=== PATIENT | female | born 1985 | race Caucasian/White ===

== ENCOUNTER 2022-10-29 09:56 | Outpatient (RCR) | payer BC, SELFPAY ==
[2022-10-30 10:10] VITALS: BP 136/86; PULSE 80; RESP 20; TEMP 36.4; O2SAT 96
--- NOTE | 2022-10-30 10:41 | PC.NURSE ---
PATIENT ARRIVES TO [facility] AMB[facility]ORY ALONG WITH SIGNIFICANT OTHER. PATIENT IS MADE COMFORTABLE IN THE RECLINER, PROCEDURE EXPLAINED, PATIENT VERBALIZED UNDERSTANDING. CONSENT SIGNED. VITAL SIGNS OBTAINED. PATIENT IS A NEGATIVE AND IS RECEIVING AN IM INJECTION OF RHOPHYLAC 1500IU, ONE DOSE. THE R DORSOGLUTEAL SITE WAS CLEANSED WITH AN ALCOHOL WIPE AND ALLOWED TO DRY. THE IM INJECTION WAS GIVEN WITHOUT DIFFICULTY. THE SITE WAS COVERED WITH A COTTON BALL AND BAND AID. THE PATIENT AND SIGNIFICANT OTHER ARE WAITING 20 MINUTES TO ASSESS FOR SIGNS AND SYMPTOMS OF A REACTION. POST 20 MINUTES THE PATIENT DENIES SIGNS AND SYMPTOMS AND IS DISCHARGED AMBULATORY WITHOUT COMPLAINTS TO THE CARE OF SIGNIFICANT OTHER. PATIENT WAS PROVIDED ADMINISTRATION RECORD WITH EMERGENCY CONTACT INFORMATION. PATIENT WAS ALSO PROVIDED AN EDUCATIONAL [employer] BOARD WITH THE TOPIC OF RHOGAM TO REVIEW.
== END 2022-12-02 16:04 | disposition home or self-care (01) ==
LOC: LAB 09:56
PROVIDERS: PCP Family Medicine; Visit Provider Midwife
DX: Z67.91 Unspecified blood type, Rh negative (principal)
CPT/HCPCS: 36415; 86900; 86901

== ENCOUNTER 2022-10-30 08:58 | Outpatient (OUT) | payer BC, SELFPAY ==
[2022-10-30 13:09] VITALS: TEMP 36.6
[2022-10-30 13:11] VITALS: BP 154/69; PULSE 96
== END 2022-10-30 10:00 | disposition home or self-care (01) ==
LOC: LAB 09:46 → FBC 09:52
PROVIDERS: PCP Family Medicine; Visit Provider Obstetrics & Gynecology
DX: O10.919 Unspecified pre-existing hypertension complicating pregnancy, unspecified trimester (principal)
CPT/HCPCS: 59025

== ENCOUNTER 2022-11-03 09:29 | Outpatient (OUT) | payer BC, SELFPAY ==
[2022-11-03 09:46] VITALS: BP 135/74; PULSE 85; RESP 16
== END 2022-11-03 10:02 | disposition home or self-care (01) ==
LOC: FBCO 09:31 → FBC 09:33
PROVIDERS: PCP Family Medicine; Visit Provider Obstetrics & Gynecology
DX: O16.9 Unspecified maternal hypertension, unspecified trimester (principal)
CPT/HCPCS: 59025

== ENCOUNTER 2022-11-10 09:40 | Outpatient (OUT) | payer BC, SELFPAY ==
[2022-11-10 09:43] VITALS: BP 123/78; PULSE 104
[2022-12-02 11:39] VITALS: BP 145/89; PULSE 74; RESP 18; TEMP 36.7
== END 2022-11-10 10:10 | disposition home or self-care (01) ==
LOC: FBCO 09:42 → FBC 09:43
PROVIDERS: PCP Family Medicine; Visit Provider Obstetrics & Gynecology
DX: Z39.2 Encounter for routine postpartum follow-up (principal)
CPT/HCPCS: 59025

== ENCOUNTER 2022-11-22 19:51 | Observation (INO) | payer BC, SELFPAY ==
[2022-11-22] VITALS (12 sets, daily range): BP systolic 121–140; BP diastolic 62–80; PULSE 78–88; RESP 16–18; TEMP 36.8–36.9
[2022-11-22 20:57] LABS: Hematocrit 35.1 % (36.0-48.0); Hemoglobin 11.7 g/dL (12.0-16.0); Mean Corpuscular HGB Conc 33.3 g/dL (29.9-35.2); Mean Corpuscular Hemoglobin 27.7 pg (26.7-34.0); Mean Corpuscular Volume 83.2 fL (81.0-99.0); Mean Platelet Volume 12.3 fL (9.5-13.5); Platelet Count 274 10^3/uL (150-450); Red Blood Count 4.22 10^6/uL (4.20-5.40); Red Cell Distribution Width 12.7 % (11.0-15.0); White Blood Count 14.4 10^3/uL (4.0-11.0)
[2022-11-22 21:09] LABS: Amphetamine Screen Urine NEGATIVE (NEGATIVE); Barbiturates Screen Urine NEGATIVE (NEGATIVE); Benzodiazepines Screen Urine NEGATIVE (NEGATIVE); Buprenorphine Screen Urine NEGATIVE (NEGATIVE); Cannabinoid Screen Urine NEGATIVE (NEGATIVE); Cocaine Screen Urine NEGATIVE (NEGATIVE); Methadone Screen Urine NEGATIVE (NEGATIVE); Methamphetamines Screen Urine NEGATIVE (NEGATIVE); Opiate Screen Urine NEGATIVE (NEGATIVE); Oxycodone Screen Urine NEGATIVE (NEGATIVE); Phencyclidine Screen Urine NEGATIVE (NEGATIVE); Tricyclic Antidepressant Urine NEGATIVE (NEGATIVE)
[2022-11-22] MEDS: DINOPROSTONE 10 MG VAG INSERT.ER VAGINAL (21:47)
[2022-11-23] VITALS (23 sets, daily range): BP systolic 111–148; BP diastolic 58–82; PULSE 70–100; RESP 14–16; TEMP 36.3–37
[2022-11-23] MEDS: LABETALOL HCL 200 MG TABLET PO ×2 (05:59→13:44)
--- NOTE | 2022-11-23 07:50 | PC.NURSE ---
report recieved, pt taking breakfast
[2022-11-23] MEDS: AMPICILLIN SODIUM 2,000 MG in 0.9 % SODIUM CHLORIDE 100 ML 100 MG IV (08:45)
[2022-11-23] MEDS: 0.9 % SODIUM CHLORIDE 1,000 ML 125 ML IV (08:46)
[2022-11-23] MEDS: OXYTOCIN 10 UNIT in 0.9 % SODIUM CHLORIDE 500 ML 6.012 UNIT IV (08:50)
--- NOTE | 2022-11-23 10:55 | P.OBHP_ITS ---
OB - H&P: HPI History of Present Illness Chief complaint: INDUCTION : 3 Para: 1 Comments: three, para one at thirty-seven weeks two days gestation, presented for induction of labor secondary to gestational hypertension. History of Present complications: induced hypertension Review of Systems ROS Status of ROS 10 or more systems reviewed and unremarkable except as noted in history and below PFSH PFSH Social History Do you think of yourself as: straight/heterosexual Gender Identity: female Meds Home Medications and Allergies Home Medications Medication Instructions Recorded Confirmed Type labetalol 200 mg tablet 200 mg PO TID 11/03/22 11/03/22 History pantoprazole 40 mg tablet,delayed 40 mg PO DAILY 11/03/22 11/03/22 History release vit 168-iron 27 mg-folic 1 cap PO DAILY 11/03/22 11/03/22 History acid 800 mcg-omega3 235 mg capsule (One-A-Day -1) valacyclovir 500 mg tablet 500 mg PO DAILY 11/03/22 11/03/22 History Allergies Allergy/AdvReac Type Severity Reaction Status Date / Time No Known Drug Allergies Allergy Verified 11/03/22 09:42 Exam Narrative Exam Narrative: Gen. exam is normal. Respiratory system exam is normal. Heart regular rate and rhythm. Abdomen soft, nontender. Uterus is soft, contractions are regular. heart rate is reactive. No vaginal discharge, itching of fluid or bleeding. Neurological exam. Psychiatric exam was normal. Constitutional Vital Signs - 24 hr 11/22/22 20:35 11/22/22 20:31 11/22/22 21:45 Temperature 98.4 F Pulse Rate 88 83 Respiratory Rate 18 Blood Pressure 140/77 H 133/77 H 11/22/22 22:10 11/22/22 22:10 11/22/22 22:25 Temperature 98.4 F Pulse Rate 80 81 Respiratory Rate 16 Blood Pressure 133/70 H 127/68 H 11/22/22 22:39 11/22/22 22:55 11/22/22 23:10 Temperature Pulse Rate 84 85 78 Respiratory Rate Blood Pressure 129/71 H 137/80 H 126/64 H 11/22/22 23:24 11/22/22 23:39 11/22/22 23:55 Temperature Pulse Rate 78 80 79 Respiratory Rate Blood Pressure 124/65 H 122/62 H 121/64 H 11/23/22 00:11 11/23/22 01:18 11/23/22 02:18 Temperature Pulse Rate 83 72 70 Respiratory Rate Blood Pressure 136/74 H 118/59 L 111/58 L 11/23/22 01:33 11/23/22 03:18 11/23/22 04:18 Temperature 98.1 F Pulse Rate 75 72 Respiratory Rate 16 Blood Pressure 139/79 H 133/62 H 11/23/22 05:20 11/23/22 06:18 11/23/22 08:27 Temperature Pulse Rate 76 83 100 H Respiratory Rate Blood Pressure 122/58 H 130/74 H 131/80 H 11/23/22 09:13 11/23/22 08:59 11/23/22 09:52 Temperature 98.3 F Pulse Rate 90 78 Respiratory Rate 16 Blood Pressure 124/82 H 131/70 H 11/22/22 22:53 11/23/22 03:37 11/23/22 06:12 Temperature 98.3 F 98.1 F 98.6 F Pulse Rate Respiratory Rate 18 14 16 Blood Pressure Manual OB Exam: dilated 1 cm and effaced (posterior) 50% Results Labs Labs: Short CBC 11/22/22 Range/Units 20:45 WBC 14.4 H (4.0-11.0) 10^3/uL Hgb 11.7 L (12.0-16.0) g/dL Hct 35.1 L (36.0-48.0) % Plt Count 274 (150-450) 10^3/uL OB - A/P Assessment and Plan (1) Gestational hypertension: Plan IOL 37w3d, Gestational HTN. After Cervidil cervical ripening overnight and Pitocin during the day, does not change in cervix. Cervix is 1-2, fifty percent, posterior. head is at -2-3. Patient is asymptomatic, blood pressures within normal limits. Well-controlled on labetalol 200 mg three times a day. 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
[2022-11-23] MEDS: AMPICILLIN SODIUM 1,000 MG in 0.9 % SODIUM CHLORIDE 50 ML 50 MG IV (13:46)
== END 2022-11-23 18:45 | disposition home or self-care (01) ==
PROVIDERS: Midwife; Admitting Provider Obstetrics & Gynecology; PCP Family Medicine; Visit Provider Obstetrics & Gynecology
DX: O13.3 Gestational [pregnancy-induced] hypertension without significant proteinuria, third trimester (principal); O61.0 Failed medical induction of labor; Z3A.37 37 weeks gestation of pregnancy; Z79.899 Other long term (current) drug therapy
CPT/HCPCS: 36415; 80307; 85027; 86900; 86901; 96374; 96375; 96376; G0378; G0379

== ENCOUNTER 2022-11-26 20:42 | Inpatient (IN) | payer BC, SELFPAY ==
[2022-11-26 21:25] VITALS: BP 130/82; PULSE 82
[2022-11-26 21:25] LABS: Bilirubin Urine NEGATIVE (NEGATIVE); Blood Urine TRACE-I (NEGATIVE); Clarity Urine CLEAR (CLEAR); Color Urine YELLOW (YELLOW); Glucose Urine UA NEGATIVE (NEGATIVE); Ketones Urine TRACE mg/dL (NEGATIVE); Leukocyte Esterase Urine NEGATIVE (NEGATIVE); Nitrite Urine NEGATIVE (NEGATIVE); Protein Urine NEGATIVE (NEG/TRACE); Specific Gravity Urine >=1.030 (1.005-1.025); Urine Microscopic Indicated NO; Urobilinogen Urine 0.2 EU/dL (0.2-1.0); pH Urine 5.5 (5.0-9.0)
[2022-11-26 22:35] LABS: Hematocrit 35.3 % (36.0-48.0); Hemoglobin 11.3 g/dL (12.0-16.0); Mean Corpuscular Volume 84.4 fL (81.0-99.0); Mean Platelet Volume 12.5 fL (9.5-13.5); Platelet Count 259 10^3/uL (150-450); Red Blood Count 4.18 10^6/uL (4.20-5.40); Red Cell Distribution Width 12.8 % (11.0-15.0)
[2022-11-26 22:46] LABS: Amphetamine Screen Urine NEGATIVE (NEGATIVE); Barbiturates Screen Urine NEGATIVE (NEGATIVE); Benzodiazepines Screen Urine NEGATIVE (NEGATIVE); Buprenorphine Screen Urine NEGATIVE (NEGATIVE); Cannabinoid Screen Urine NEGATIVE (NEGATIVE); Cocaine Screen Urine NEGATIVE (NEGATIVE); Methadone Screen Urine NEGATIVE (NEGATIVE); Methamphetamines Screen Urine NEGATIVE (NEGATIVE); Opiate Screen Urine NEGATIVE (NEGATIVE); Oxycodone Screen Urine NEGATIVE (NEGATIVE); Phencyclidine Screen Urine NEGATIVE (NEGATIVE); Tricyclic Antidepressant Urine NEGATIVE (NEGATIVE)
[2022-11-26] MEDS: 0.9 % SODIUM CHLORIDE 1,000 ML 1000 ML IV (22:54)
[2022-11-26] MEDS: FLUCONAZOLE 150 MG TABLET (22:55)
[2022-11-26 22:59] VITALS: BP 144/82; PULSE 83
[2022-11-26 23:10] VITALS: BP 144/82; PULSE 83; RESP 18; TEMP 36.6
[2022-11-26] MEDS: OXYTOCIN 10 UNIT in 0.9 % SODIUM CHLORIDE 500 ML 6.012 UNIT IV (23:59)
[2022-11-27] VITALS (67 sets, daily range): BP systolic 111–183; BP diastolic 57–97; PULSE 66–92; RESP 16; TEMP 36–36.4
[2022-11-27] MEDS: AMPICILLIN SODIUM 1,000 MG in 0.9 % SODIUM CHLORIDE 50 ML 100 MG IV ×2 (04:14→08:11)
[2022-11-27] MEDS: LABETALOL HCL 200 MG TABLET PO ×3 (04:14→19:18)
[2022-11-27] MEDS: FENTANYL CITRATE/PF 100 MCG/2 ML VIAL EPIDURAL (06:11)
[2022-11-27] MEDS: 0.9 % SODIUM CHLORIDE 1,000 ML 1000 ML IV (06:12)
--- NOTE | 2022-11-27 07:23 | W.PC.ACHO ---
Registration Status: ADM WADE Primary Language: Iraqi Preferred Language: Iraqi Active Medications Generic Name Dose Route Start Last Admin Trade Name Freq PRN Reason Stop Dose Admin Carboprost Tromethamine 250 mcg 11/26/22 22:09 Carboprost Tromethamine 250 Mcg/Ml 1 Ml Vial IM Q15M PRN Bleeding Diphenhydramine HCl 25 mg 11/26/22 23:39 Diphenhydramine Hcl 50 Mg/Ml (1ml) Vial IV Q6H PRN Itching Ephedrine Sulfate 5 mg 11/26/22 23:39 Ephedrine Sulfate 50 Mg/Ml Vial IV Q5M PRN Blood Pressure - Low Fentanyl Citrate 100 mcg 11/26/22 23:39 11/27/22 06:11 Fentanyl Citrate/Pf 100 Mcg/2 Ml Vial EPIDURAL 100 mcg Q4H PRN Administration Pain Fluconazole 150 mg 11/26/22 22:45 Fluconazole 40 Mg/Ml Susp.Recon PO QD ELIN Sodium Chloride 1,000 mls @ 125 mls/hr 11/26/22 22:15 Sodium Chloride 0.9% 1,000 Ml IV .Q8H COUNT INCLUDES THE [facility] Oxytocin 10 unit/ Sodium 501 mls @ 6.012 mls/hr 11/26/22 22:15 11/26/22 23:59 Chloride IV 2 milliunit/min Q24H ELIN 6.012 mls/hr Administration 2 MILLIUNIT/MIN Ropivacaine/Sodium Chloride 400 mg in 200 mls @ 6 mls/hr 11/26/22 23:45 Naropin 0.2% 400 Mg/200 Ml Bag EPIDURAL Q24H COUNT INCLUDES THE [facility] Ampicillin 1,000 mg/ Sodium 50 mls @ 100 mls/hr 11/27/22 04:00 11/27/22 04:14 Chloride IV 100 mls/hr Q4H ELIN 100 mls/hr Administration Oxytocin 20 unit/ Sodium 1,002 mls @ 125 mls/hr 11/27/22 06:30 Chloride IV 11/27/22 14:29 Q8H COUNT INCLUDES THE [facility] Protocol Labetalol HCl 200 mg 11/27/22 04:00 11/27/22 04:14 Labetalol Hcl 200 Mg Tablet PO 200 mg Q8H ELIN Administration Lidocaine 5 ml 11/26/22 22:09 Lidocaine Viscous 2% 15 Ml Topical Solution TOPICAL DIRECTED PRN Pain Lidocaine 1 ml 11/26/22 22:09 Lidocaine Hcl 1% 200 Mg/20 Ml Mdv INJ DIRECTED PRN Pain Lidocaine 5 ml 11/26/22 23:39 Lidocaine Hcl 2% Pf 100 Mg/5 Ml Vial INJ Q1H PRN Labor Induction Methylergonovine Maleate 0.2 mg 11/26/22 22:09 Methylergonovine Maleate 0.2 Mg/Ml Ampule IM ONCE PRN Uterine Contractility/Contract Methylergonovine Maleate 0.2 mg 11/26/22 22:09 Methylergonovine Maleate 0.2 Mg Tablet PO Q4H PRN Uterine Contractility/Contract Misoprostol 600 mcg 11/26/22 22:09 Misoprostol 100 Mcg Tablet PO ONCE PRN Uterine Bleeding Misoprostol 800 mcg 11/26/22 22:09 Misoprostol 100 Mcg Tablet SL ONCE PRN Uterine Bleeding Misoprostol 1,000 mcg 11/26/22 22:09 Misoprostol 100 Mcg Tablet GA ONCE PRN Uterine Bleeding Nalbuphine HCl 10 mg 11/26/22 22:09 Nalbuphine Hcl 10 Mg/Ml Ampule IV Q3H PRN Pain Naloxone HCl 0.4 mg 11/26/22 23:39 Naloxone Hcl 0.4 Mg/Ml Vial IV ONCE PRN Labor Induction Ondansetron HCl 4 mg 11/26/22 22:09 Ondansetron Pf 4 Mg/2 Ml Vial IV Q6H PRN Nausea And Vomiting Ondansetron HCl 4 mg 11/26/22 22:09 Ondansetron 4 Mg Rapdis Tablet SL Q6H PRN Nausea And Vomiting Oxytocin 10 unit 11/26/22 22:09 Oxytocin 100 Unit/10 Ml Vial IM ONCE PRN Uterine Bleeding Diet Category Date Time Status Clear Liquid Diet Diet 11/27/22 Breakfast Active IV Insertion/Site Date of IV Line Insertion [18g 11/26/22 left Forearm] IV Insertion Time [18g left 21:30 Forearm] Neurology Patient orientation (short person,place,time,situation list) [place] coma scale total score 15 Respiratory Lung sounds [Throughout] clear Oxygen Delivery Method Room Air Oxygen Delivery Method Room Air Cardiology Heart Sounds Regular
[2022-11-27] MEDS: 0.9 % SODIUM CHLORIDE 1,000 ML 125 ML IV (11:46)
--- NOTE | 2022-11-27 13:51 | PC.NURSE ---
Addendum entered by Naz Franks RN 11/27/22 13:53: 1305 cont nursing baby. denies needs. Original Note: 1250 nursing baby. lochia light without clots.
--- NOTE | 2022-11-27 13:54 | PC.NURSE ---
1250 nursing baby. julianne chapin.
--- NOTE | 2022-11-27 14:03 | PM.OBPRCVD ---
Procedure Procedure: events: Induced HTN Induction method: per pitocin protocol Delivery augmentation: rupture of membranes Delivery monitor: external uterine and internal FHT Route of delivery: Laceration description: none Estimated blood loss (mL): 100 Anesthesia type: Epidural Disposition: floor Delivery date: 11/27/22 Gender: male presentation: vertex Placental delivery description: Spontaneous cord description: 3 Vessels heart rate - 1 minute: 100 bpm or Greater respiratory effort - 1 minute: Spontaneous/Strong Cry muscle tone - 1 minute: Active Movement reflex response - 1 minute: Prompt Response color - 1 minute: Bluish Hands or Feet total score - 1 minute: 9 heart rate - 5 minute: 100 bpm or Greater respiratory effort - 5 minute: Spontaneous/Strong Cry muscle tone - 5 minute: Active Movement reflex response - 5 minute: Prompt Response color - 5 minute: Bluish Hands or Feet total score - 5 minute: 9 Labor State Duration Labor - Stage 3 Duration: 4 minutes Total Length of Latency: 12 hours and 7 minutes
--- NOTE | 2022-11-27 14:48 | PC.NURSE ---
1430 up to br. . instructed on [place] [facility]. declines ice or dermaplast. linens changed.
[2022-11-27] MEDS: IBUPROFEN 400 MG TABLET 800 MG PO (15:41)
--- NOTE | 2022-11-27 19:50 | W.PC.ACHO ---
Registration Status: ADM IN Primary Language: Malian Preferred Language: Malian 1914 care relinquished preeti lemus Active Medications Generic Name Dose Route Start Last Admin Trade Name Freq PRN Reason Stop Dose Admin Acetaminophen 650 mg 11/27/22 15:15 Acetaminophen 325 Mg Tablet PO Q6H PRN Mild Pain Al Hydroxide/Mg Hydroxide 2,400 mg 11/27/22 15:15 Magnesium Hydroxide 2,400 Mg/10 Ml Oral.Susp PO Q6H PRN Dyspepsia Benzocaine/Menthol 1 applic 11/27/22 15:15 Benzocaine/Menthol 85 Gram Bottle TOPICAL Q1H PRN Pain Carboprost Tromethamine 250 mcg 11/26/22 22:09 Carboprost Tromethamine 250 Mcg/Ml 1 Ml Vial IM Q15M PRN Bleeding Diphenhydramine HCl 25 mg 11/26/22 23:39 Diphenhydramine Hcl 50 Mg/Ml (1ml) Vial IV Q6H PRN Itching Docusate Sodium 100 mg 11/28/22 09:00 Docusate Sodium 100 Mg Capsule PO BID ELIN Ephedrine Sulfate 5 mg 11/26/22 23:39 Ephedrine Sulfate 50 Mg/Ml Vial IV Q5M PRN Blood Pressure - Low Fentanyl Citrate 100 mcg 11/26/22 23:39 11/27/22 06:11 Fentanyl Citrate/Pf 100 Mcg/2 Ml Vial EPIDURAL 100 mcg Q4H PRN Administration Pain Fluconazole 150 mg 11/26/22 22:45 Fluconazole 40 Mg/Ml Susp.Recon PO QD ELIN Sodium Chloride 1,000 mls @ 125 mls/hr 11/26/22 22:15 11/27/22 11:46 Sodium Chloride 0.9% 1,000 Ml IV 125 mls/hr .Q8H ELIN Administration Oxytocin 10 unit/ Sodium 501 mls @ 6.012 mls/hr 11/26/22 22:15 11/26/22 23:59 Chloride IV 2 milliunit/min Q24H ELIN 6.012 mls/hr Administration 2 MILLIUNIT/MIN Ropivacaine/Sodium Chloride 400 mg in 200 mls @ 6 mls/hr 11/26/22 23:45 Naropin 0.2% 400 Mg/200 Ml Bag EPIDURAL Q24H ELIN Ampicillin 1,000 mg/ Sodium 50 mls @ 100 mls/hr 11/27/22 04:00 11/27/22 08:11 Chloride IV 100 mls/hr Q4H ELIN 100 mls/hr Administration Ibuprofen 800 mg 11/27/22 16:00 11/27/22 15:41 Ibuprofen 400 Mg Tablet PO 800 mg Q8H ELIN Administration Labetalol HCl 200 mg 11/27/22 04:00 11/27/22 19:18 Labetalol Hcl 200 Mg Tablet PO 200 mg Q8H ELIN Administration Lidocaine 5 ml 11/26/22 22:09 Lidocaine Viscous 2% 15 Ml Topical Solution TOPICAL DIRECTED PRN Pain Lidocaine 1 ml 11/26/22 22:09 Lidocaine Hcl 1% 200 Mg/20 Ml Mdv INJ DIRECTED PRN Pain Lidocaine 5 ml 11/26/22 23:39 Lidocaine Hcl 2% Pf 100 Mg/5 Ml Vial INJ Q1H PRN Labor Induction Methylergonovine Maleate 0.2 mg 11/26/22 22:09 Methylergonovine Maleate 0.2 Mg/Ml Ampule IM ONCE PRN Uterine Contractility/Contract Methylergonovine Maleate 0.2 mg 11/26/22 22:09 Methylergonovine Maleate 0.2 Mg Tablet PO Q4H PRN Uterine Contractility/Contract Misoprostol 600 mcg 11/26/22 22:09 Misoprostol 100 Mcg Tablet PO ONCE PRN Uterine Bleeding Misoprostol 800 mcg 11/26/22 22:09 Misoprostol 100 Mcg Tablet SL ONCE PRN Uterine Bleeding Misoprostol 1,000 mcg 11/26/22 22:09 Misoprostol 100 Mcg Tablet [place] ONCE PRN Uterine Bleeding Nalbuphine HCl 10 mg 11/26/22 22:09 Nalbuphine Hcl 10 Mg/Ml Ampule IV Q3H PRN Pain Naloxone HCl 0.4 mg 11/26/22 23:39 Naloxone Hcl 0.4 Mg/Ml Vial IV ONCE PRN Labor Induction Ondansetron HCl 4 mg 11/26/22 22:09 Ondansetron Pf 4 Mg/2 Ml Vial IV Q6H PRN Nausea And Vomiting Ondansetron HCl 4 mg 11/26/22 22:09 Ondansetron 4 Mg Rapdis Tablet SL Q6H PRN Nausea And Vomiting Oxytocin 10 unit 11/26/22 22:09 Oxytocin 100 Unit/10 Ml Vial IM ONCE PRN Uterine Bleeding Simethicone 80 mg 11/27/22 15:15 Simethicone 80 Mg Tab.Chew PO QID PRN Abdominal Distention Witch Dianne/Glycerin 1 each 11/27/22 16:00 Glycerin/Witch Dianne 1 Each Jar TOPICAL ONCE PRN Pain Diet Category Date Time Status Regular Consistency Diet Diet 11/27/22 Dinner Active IV Insertion/Site Date of IV Line Insertion [18g 11/26/22 left Forearm] IV Insertion Time [18g left 21:30 Forearm] Neurology Patient orientation (short person,place,time,situation list) [place] coma scale total score 15 Respiratory Lung sounds [Throughout] clear Lung sounds [Throughout] clear Oxygen Delivery Method Room Air Oxygen Delivery Method Room Air Cardiology Heart Sounds Regular Heart Sounds Regular Renal Bladder Pattern Continent
--- NOTE | 2022-11-27 19:55 | W.PC.ACHO ---
Registration Status: ADM IN Primary Language: Mexican Preferred Language: Mexican Report received at 1910. Gui ARREAGA assumes care. Pao Franks to assess pt and give evening dose of labetalol per order. Active Medications Generic Name Dose Route Start Last Admin Trade Name Freq PRN Reason Stop Dose Admin Acetaminophen 650 mg 11/27/22 15:15 Acetaminophen 325 Mg Tablet PO Q6H PRN Mild Pain Al Hydroxide/Mg Hydroxide 2,400 mg 11/27/22 15:15 Magnesium Hydroxide 2,400 Mg/10 Ml Oral.Susp PO Q6H PRN Dyspepsia Benzocaine/Menthol 1 applic 11/27/22 15:15 Benzocaine/Menthol 85 Gram Bottle TOPICAL Q1H PRN Pain Carboprost Tromethamine 250 mcg 11/26/22 22:09 Carboprost Tromethamine 250 Mcg/Ml 1 Ml Vial IM Q15M PRN Bleeding Diphenhydramine HCl 25 mg 11/26/22 23:39 Diphenhydramine Hcl 50 Mg/Ml (1ml) Vial IV Q6H PRN Itching Docusate Sodium 100 mg 11/28/22 09:00 Docusate Sodium 100 Mg Capsule PO BID ELIN Ephedrine Sulfate 5 mg 11/26/22 23:39 Ephedrine Sulfate 50 Mg/Ml Vial IV Q5M PRN Blood Pressure - Low Fentanyl Citrate 100 mcg 11/26/22 23:39 11/27/22 06:11 Fentanyl Citrate/Pf 100 Mcg/2 Ml Vial EPIDURAL 100 mcg Q4H PRN Administration Pain Fluconazole 150 mg 11/26/22 22:45 Fluconazole 40 Mg/Ml Susp.Recon PO QD ELIN Sodium Chloride 1,000 mls @ 125 mls/hr 11/26/22 22:15 11/27/22 11:46 Sodium Chloride 0.9% 1,000 Ml IV 125 mls/hr .Q8H ELIN Administration Oxytocin 10 unit/ Sodium 501 mls @ 6.012 mls/hr 11/26/22 22:15 11/26/22 23:59 Chloride IV 2 milliunit/min Q24H ELIN 6.012 mls/hr Administration 2 MILLIUNIT/MIN Ropivacaine/Sodium Chloride 400 mg in 200 mls @ 6 mls/hr 11/26/22 23:45 Naropin 0.2% 400 Mg/200 Ml Bag EPIDURAL Q24H ELIN Ampicillin 1,000 mg/ Sodium 50 mls @ 100 mls/hr 11/27/22 04:00 11/27/22 08:11 Chloride IV 100 mls/hr Q4H ELIN 100 mls/hr Administration Ibuprofen 800 mg 11/27/22 16:00 11/27/22 15:41 Ibuprofen 400 Mg Tablet PO 800 mg Q8H [facility] Administration Labetalol HCl 200 mg 11/27/22 04:00 11/27/22 19:18 Labetalol Hcl 200 Mg Tablet PO 200 mg Q8H [facility] Administration Lidocaine 5 ml 11/26/22 22:09 Lidocaine Viscous 2% 15 Ml Topical Solution TOPICAL DIRECTED PRN Pain Lidocaine 1 ml 11/26/22 22:09 Lidocaine Hcl 1% 200 Mg/20 Ml Mdv INJ DIRECTED PRN Pain Lidocaine 5 ml 11/26/22 23:39 Lidocaine Hcl 2% Pf 100 Mg/5 Ml Vial INJ Q1H PRN Labor Induction Methylergonovine Maleate 0.2 mg 11/26/22 22:09 Methylergonovine Maleate 0.2 Mg/Ml Ampule IM ONCE PRN Uterine Contractility/Contract Methylergonovine Maleate 0.2 mg 11/26/22 22:09 Methylergonovine Maleate 0.2 Mg Tablet PO Q4H PRN Uterine Contractility/Contract Misoprostol 600 mcg 11/26/22 22:09 Misoprostol 100 Mcg Tablet PO ONCE PRN Uterine Bleeding Misoprostol 800 mcg 11/26/22 22:09 Misoprostol 100 Mcg Tablet SL ONCE PRN Uterine Bleeding Misoprostol 1,000 mcg 11/26/22 22:09 Misoprostol 100 Mcg Tablet [place] ONCE PRN Uterine Bleeding Nalbuphine HCl 10 mg 11/26/22 22:09 Nalbuphine Hcl 10 Mg/Ml Ampule IV Q3H PRN Pain Naloxone HCl 0.4 mg 11/26/22 23:39 Naloxone Hcl 0.4 Mg/Ml Vial IV ONCE PRN Labor Induction Ondansetron HCl 4 mg 11/26/22 22:09 Ondansetron Pf 4 Mg/2 Ml Vial IV Q6H PRN Nausea And Vomiting Ondansetron HCl 4 mg 11/26/22 22:09 Ondansetron 4 Mg Rapdis Tablet SL Q6H PRN Nausea And Vomiting Oxytocin 10 unit 11/26/22 22:09 Oxytocin 100 Unit/10 Ml Vial IM ONCE PRN Uterine Bleeding Simethicone 80 mg 11/27/22 15:15 Simethicone 80 Mg Tab.Chew PO QID PRN Abdominal Distention Witch Dianne/Glycerin 1 each 11/27/22 16:00 Glycerin/Witch Dianne 1 Each Jar TOPICAL ONCE PRN Pain Diet Category Date Time Status Regular Consistency Diet Diet 11/27/22 Dinner Active IV Insertion/Site Date of IV Line Insertion [18g 11/26/22 left Forearm] IV Insertion Time [18g left 21:30 Forearm] Neurology Patient orientation (short person,place,time,situation list) [place] coma scale total score 15 Respiratory Lung sounds [Throughout] clear Lung sounds [Throughout] clear Oxygen Delivery Method Room Air Oxygen Delivery Method Room Air Cardiology Heart Sounds Regular Heart Sounds Regular Renal Bladder Pattern Continent
--- NOTE | 2022-11-27 20:58 | W.PC.ACHO ---
Registration Status: ADM IN Primary Language: [place]er Preferred Language: [place] RN gives Farrah ARREAGA report. Active Medications Generic Name Dose Route Start Last Admin Trade Name Freq PRN Reason Stop Dose Admin Acetaminophen 650 mg 11/27/22 15:15 Acetaminophen 325 Mg Tablet PO Q6H PRN Mild Pain Al Hydroxide/Mg Hydroxide 2,400 mg 11/27/22 15:15 Magnesium Hydroxide 2,400 Mg/10 Ml Oral.Susp PO Q6H PRN Dyspepsia Benzocaine/Menthol 1 applic 11/27/22 15:15 Benzocaine/Menthol 85 Gram Bottle TOPICAL Q1H PRN Pain Carboprost Tromethamine 250 mcg 11/26/22 22:09 Carboprost Tromethamine 250 Mcg/Ml 1 Ml Vial IM Q15M PRN Bleeding Diphenhydramine HCl 25 mg 11/26/22 23:39 Diphenhydramine Hcl 50 Mg/Ml (1ml) Vial IV Q6H PRN Itching Docusate Sodium 100 mg 11/28/22 09:00 Docusate Sodium 100 Mg Capsule PO BID ELIN Ephedrine Sulfate 5 mg 11/26/22 23:39 Ephedrine Sulfate 50 Mg/Ml Vial IV Q5M PRN Blood Pressure - Low Fentanyl Citrate 100 mcg 11/26/22 23:39 11/27/22 06:11 Fentanyl Citrate/Pf 100 Mcg/2 Ml Vial EPIDURAL 100 mcg Q4H PRN Administration Pain Fluconazole 150 mg 11/26/22 22:45 Fluconazole 40 Mg/Ml Susp.Recon PO QD ELIN Sodium Chloride 1,000 mls @ 125 mls/hr 11/26/22 22:15 11/27/22 11:46 Sodium Chloride 0.9% 1,000 Ml IV 125 mls/hr .Q8H [facility] Administration Oxytocin 10 unit/ Sodium 501 mls @ 6.012 mls/hr 11/26/22 22:15 11/26/22 23:59 Chloride IV 2 milliunit/min Q24H ELIN 6.012 mls/hr Administration 2 MILLIUNIT/MIN Ropivacaine/Sodium Chloride 400 mg in 200 mls @ 6 mls/hr 11/26/22 23:45 Naropin 0.2% 400 Mg/200 Ml Bag EPIDURAL Q24H ELIN Ampicillin 1,000 mg/ Sodium 50 mls @ 100 mls/hr 11/27/22 04:00 11/27/22 08:11 Chloride IV 100 mls/hr Q4H ELIN 100 mls/hr Administration Ibuprofen 800 mg 11/27/22 16:00 11/27/22 15:41 Ibuprofen 400 Mg Tablet PO 800 mg Q8H ELIN Administration Labetalol HCl 200 mg 11/27/22 04:00 11/27/22 19:18 Labetalol Hcl 200 Mg Tablet PO 200 mg Q8H ELIN Administration Lidocaine 5 ml 11/26/22 22:09 Lidocaine Viscous 2% 15 Ml Topical Solution TOPICAL DIRECTED PRN Pain Lidocaine 1 ml 11/26/22 22:09 Lidocaine Hcl 1% 200 Mg/20 Ml Mdv INJ DIRECTED PRN Pain Lidocaine 5 ml 11/26/22 23:39 Lidocaine Hcl 2% Pf 100 Mg/5 Ml Vial INJ Q1H PRN Labor Induction Methylergonovine Maleate 0.2 mg 11/26/22 22:09 Methylergonovine Maleate 0.2 Mg/Ml Ampule IM ONCE PRN Uterine Contractility/Contract Methylergonovine Maleate 0.2 mg 11/26/22 22:09 Methylergonovine Maleate 0.2 Mg Tablet PO Q4H PRN Uterine Contractility/Contract Misoprostol 600 mcg 11/26/22 22:09 Misoprostol 100 Mcg Tablet PO ONCE PRN Uterine Bleeding Misoprostol 800 mcg 11/26/22 22:09 Misoprostol 100 Mcg Tablet SL ONCE PRN Uterine Bleeding Misoprostol 1,000 mcg 11/26/22 22:09 Misoprostol 100 Mcg Tablet [place] ONCE PRN Uterine Bleeding Nalbuphine HCl 10 mg 11/26/22 22:09 Nalbuphine Hcl 10 Mg/Ml Ampule IV Q3H PRN Pain Naloxone HCl 0.4 mg 11/26/22 23:39 Naloxone Hcl 0.4 Mg/Ml Vial IV ONCE PRN Labor Induction Ondansetron HCl 4 mg 11/26/22 22:09 Ondansetron Pf 4 Mg/2 Ml Vial IV Q6H PRN Nausea And Vomiting Ondansetron HCl 4 mg 11/26/22 22:09 Ondansetron 4 Mg Rapdis Tablet SL Q6H PRN Nausea And Vomiting Oxytocin 10 unit 11/26/22 22:09 Oxytocin 100 Unit/10 Ml Vial IM ONCE PRN Uterine Bleeding Simethicone 80 mg 11/27/22 15:15 Simethicone 80 Mg Tab.Chew PO QID PRN Abdominal Distention Witch Dianne/Glycerin 1 each 11/27/22 16:00 Glycerin/Witch Dianne 1 Each Jar TOPICAL ONCE PRN Pain Diet Category Date Time Status Regular Consistency Diet Diet 11/27/22 Dinner Active IV Insertion/Site Date of IV Line Insertion [18g 11/26/22 left Forearm] IV Insertion Time [18g left 21:30 Forearm] Neurology Patient orientation (short person,place,time,situation list) Bere coma scale total score 15 Respiratory Lung sounds [Throughout] clear Lung sounds [Throughout] clear Oxygen Delivery Method Room Air Oxygen Delivery Method Room Air Cardiology Heart Sounds Regular Heart Sounds Regular Renal Bladder Pattern Continent
[2022-11-28 03:13] VITALS: BP 176/92; PULSE 75
[2022-11-28] MEDS: IBUPROFEN 400 MG TABLET 800 MG PO ×2 (03:13→14:45)
[2022-11-28 03:15] VITALS: BP 142/78; PULSE 83; RESP 16
[2022-11-28] MEDS: LABETALOL HCL 200 MG TABLET PO ×2 (03:17→14:38)
[2022-11-28 06:30] LABS: Basophils Percent Auto 0.2 % (0.2-2.0); Eosinophils Absolute Auto 0.1 10^3/uL (0.0-0.7); Eosinophils Percent Auto 0.7 % (0.9-7.0); Hematocrit 33.7 % (36.0-48.0); Immature Granulocytes Abs Auto 0.09 10^3/uL (0.00-0.03); Immature Granulocytes Pct Auto 0.7 % (0.0-0.5); Lymphocytes Percent Auto 15.1 % (20.5-60.0); Mean Corpuscular HGB Conc 32.6 g/dL (29.9-35.2); Mean Corpuscular Hemoglobin 27.5 pg (26.7-34.0); Mean Corpuscular Volume 84.3 fL (81.0-99.0); Mean Platelet Volume 12.3 fL (9.5-13.5); Monocytes Absolute Auto 0.7 10^3/uL (0.3-0.8); Monocytes Percent Auto 5.4 % (1.7-12.0); Neutrophils Absolute Auto 10.5 10^3/uL (1.4-6.5); Neutrophils Percent Auto 77.9 % (43.0-75.0); Platelet Count 234 10^3/uL (150-450); White Blood Count 13.5 10^3/uL (4.0-11.0)
--- NOTE | 2022-11-28 07:04 | PM.OBPN ---
OB - PN: Subj Subjective Patient comments: no complaints and pain well controlled Exam Constitutional Vital Signs - 24 hr 11/27/22 07:18 11/27/22 07:46 11/27/22 07:49 Temperature 97.0 F L Pulse Rate 75 66 Respiratory Rate Blood Pressure 143/74 H 128/61 H Oxygen Delivery Method 11/27/22 08:02 11/27/22 08:19 11/27/22 08:32 Temperature Pulse Rate 74 68 74 Respiratory Rate Blood Pressure 136/63 H 139/65 H 137/70 H Oxygen Delivery Method 11/27/22 08:49 11/27/22 09:03 11/27/22 09:18 Temperature Pulse Rate 73 75 76 Respiratory Rate Blood Pressure 160/90 H 138/70 H 148/86 H Oxygen Delivery Method 11/27/22 09:33 11/27/22 09:49 11/27/22 10:03 Temperature 96.8 F L Pulse Rate 81 74 74 Respiratory Rate Blood Pressure 132/59 H 135/72 H 144/73 H Oxygen Delivery Method 11/27/22 10:17 11/27/22 10:33 11/27/22 10:48 Temperature Pulse Rate 81 78 76 Respiratory Rate Blood Pressure 136/72 H 148/91 H 139/70 H Oxygen Delivery Method 11/27/22 11:03 11/27/22 11:02 11/27/22 11:18 Temperature 97.1 F L Pulse Rate 75 69 Respiratory Rate Blood Pressure 141/74 H 156/76 H Oxygen Delivery Method 11/27/22 11:32 11/27/22 11:49 11/27/22 12:04 Temperature Pulse Rate 86 70 82 Respiratory Rate Blood Pressure 157/83 H 183/91 H 151/92 H Oxygen Delivery Method 11/27/22 12:18 11/27/22 12:23 11/27/22 12:32 Temperature Pulse Rate 90 80 88 Respiratory Rate Blood Pressure 149/77 H 157/78 H 159/77 H Oxygen Delivery Method 11/27/22 12:37 11/27/22 12:47 11/27/22 13:02 Temperature 97.5 F L Pulse Rate 89 84 Respiratory Rate Blood Pressure 157/84 H 158/82 H Oxygen Delivery Method 11/27/22 13:18 11/27/22 13:33 11/27/22 13:47 Temperature Pulse Rate 81 78 79 Respiratory Rate Blood Pressure 149/72 H 135/63 H 141/76 H Oxygen Delivery Method 11/27/22 14:02 11/27/22 14:17 11/27/22 19:16 Temperature 97.3 F L Pulse Rate 80 81 Respiratory Rate Blood Pressure 146/78 H 153/87 H Oxygen Delivery Method 11/27/22 19:17 11/27/22 22:56 11/28/22 03:13 Temperature Pulse Rate 91 H 78 75 Respiratory Rate Blood Pressure 149/79 H 143/89 H 176/92 H Oxygen Delivery Method 11/28/22 03:15 11/27/22 19:17 11/27/22 19:28 Temperature 97.4 F L Pulse Rate 83 Respiratory Rate 16 Blood Pressure 142/78 H Oxygen Delivery Method 11/27/22 23:00 11/28/22 03:15 Temperature Pulse Rate Respiratory Rate 16 16 Blood Pressure Oxygen Delivery Method Room Air Room Air Documenting provider has reviewed patient's vital signs: yes Common normals: no apparent distress Respiratory Common normals: normal respiratory effort and clear to auscultation bilaterally Cardio Common normals: regular rate and regular rhythm GI Common normals: Normal to inspection, nondistended, normoactive bowel sounds present and soft to palpation Extremity Common normals: normal to inspection, no clubbing, cyanosis or edema and no calf tenderness Results Labs Labs: Short CBC 11/28/22 Range/Units 06:12 WBC 13.5 H (4.0-11.0) 10^3/uL Hgb 11.0 L (12.0-16.0) g/dL Hct 33.7 L (36.0-48.0) % Plt Count 234 (150-450) 10^3/uL OB - PN: A/P Plan - Vaginal Delivery day: 2 Plan: routine care and discharge home Time Spent with Patient Time: Total time spent is greater than 50% in coordination of care (as documented) at patient's floor/unit and/or counseling patient: Total time spent with greater than 50% in coordination of care (as documented) at patient's floor/unit and/or counseling patient: less than 15 minutes
[2022-11-28 08:34] VITALS: BP 123/89; PULSE 90
[2022-11-28 08:36] VITALS: RESP 18; TEMP 36.7
[2022-11-28] MEDS: DOCUSATE SODIUM 100 MG CAPSULE PO (08:36)
[2022-11-28] MEDS: RHO(D) IMMUNE GLOBULIN 1,500 UNIT SYRINGE 1500 UNIT IV (14:38)
== END 2022-11-28 16:40 | disposition home or self-care (01) | DRG 807 ==
PROVIDERS: Admitting Provider Midwife; PCP Family Medicine; Visit Provider Obstetrics & Gynecology
DX: O13.4 Gestational [pregnancy-induced] hypertension without significant proteinuria, complicating childbirth (principal); Z37.0 Single live birth; O99.824 Streptococcus B carrier state complicating childbirth; Z3A.37 37 weeks gestation of pregnancy
CPT/HCPCS: 36415; 51702; 59050; 59410; 80307; 81003; 85025; 85027; 85461; 86850; 86900; 86901; 96365; 96375; 96376; J2790

== ENCOUNTER 2023-01-19 13:38 | Outpatient (OUT) | payer BC, SELFPAY ==
--- NOTE | 2023-01-19 13:35 | ECG_ITS ---
[facility] Test Date: 2023-01-19 Pat Name: ANNABELLA DAVIDSON Department: Room: - Gender: Female Supervisor [employer]: : 1985 Requested By: LULA BECKER Order Number: [id number] Reading MD: MEGA ONEAL Measurements Intervals [place] Rate: 87 P: 41 IL: 173 QRS: 38 QRSD: 97 T: 53 QT: 353 QTc: 426 Interpretive Statements SINUS RHYTHM No previous ECG available for comparison Electronically Signed On 01-20-2023 7:00:30 EDT by MEGA ONEAL
== END 2023-01-19 13:39 | disposition home or self-care (01) ==
LOC: PST 13:39
PROVIDERS: PCP Family Medicine; Visit Provider Obstetrics & Gynecology
DX: Z01.810 Encounter for preprocedural cardiovascular examination (principal); Z30.2 Encounter for sterilization
CPT/HCPCS: 93005

== ENCOUNTER 2023-01-29 08:38 | Day surgery (SDC) | payer BC, SELFPAY ==
[2023-01-19 14:06] VITALS: BP 152/94; PULSE 91; RESP 18; TEMP 36.4; O2SAT 96; BMI 43.3
[2023-01-29] VITALS (15 sets, daily range): BP systolic 147–169; BP diastolic 81–120; PULSE 54–81; RESP 14–21; TEMP 36.3–36.4; O2SAT 91–99; BMI 43.0
[2023-01-29 08:48] LABS: Basophils Percent Auto 0.4 % (0.2-2.0); Eosinophils Absolute Auto 0.2 10^3/uL (0.0-0.7); Eosinophils Percent Auto 2.8 % (0.9-7.0); Hematocrit 41.6 % (36.0-48.0); Hemoglobin 13.5 g/dL (12.0-16.0); Immature Granulocytes Abs Auto 0.03 10^3/uL (0.00-0.03); Immature Granulocytes Pct Auto 0.4 % (0.0-0.5); Lymphocytes Absolute Auto 2.3 10^3/uL (1.2-3.8); Lymphocytes Percent Auto 31.6 % (20.5-60.0); Mean Corpuscular HGB Conc 32.5 g/dL (29.9-35.2); Mean Corpuscular Volume 83.2 fL (81.0-99.0); Mean Platelet Volume 10.8 fL (9.5-13.5); Monocytes Absolute Auto 0.4 10^3/uL (0.3-0.8); Monocytes Percent Auto 5.6 % (1.7-12.0); Neutrophils Absolute Auto 4.3 10^3/uL (1.4-6.5); Neutrophils Percent Auto 59.2 % (43.0-75.0); Platelet Count 323 10^3/uL (150-450); Red Cell Distribution Width 13.5 % (11.0-15.0); White Blood Count 7.3 10^3/uL (4.0-11.0)
[2023-01-29] MEDS: LACTATED RINGER'S SOLUTION 1,000 ML 50 ML IV ×2 (09:13→12:00)
[2023-01-29 09:15] LABS: HCG Quantitative <1 mIU/mL
--- NOTE | 2023-01-29 12:07 | P.ON_ITS ---
Brief Operative Note Date of procedure: 01/29/23 Pre-op diagnosis: desires permanent sterilization, multiparity Post-op diagnosis: other (lt ovarian mass, suspected dermoid) Procedure: NAME OF PROCEDURE: bilateral laparoscopic salpingectomy robotic, with lt oopherectomy PROCEDURE: The patient was taken back to the Operating Room where she was given general anesthesia without difficulty. She was then prepped and draped in the normal sterile fashion after being placed in a dorsal lithotomy position. A wet sponge stick was placed into the patient's vagina. Attention was then turned to the patient's abdomen, where a scalpel was used to make a small infraumbilical incision. The S retractors were then used to dissect the underlying layers until the fascia could be seen. The fascia was then grasped with Praveena clamps and tented up. A knife was then used to make a small incision to the fascia. The muscle was identified, at that time two sutures of #0 Vicryl on a GI needle was then used and placed through the fascia. the peritoneum was then identified and entered bluntly. The 10-4 Len was then placed into the patient's abdomen. This was confirmed with direct visualization of the bowel, using the laparoscope. The patient's abdomen was then insufflated using approximately 4 liters of CO2 gas. Survey of the patient's abdomen demonstrated ovaries were normal in appearance as well as both tubes and uterus. A second and third rt and lt lateral robotic ports which were 8 mm in size, was then placed after the skin incision was made under direct visualization . robotic arm were engaged,. The patient's tube on the patient's right side was identified and tented up using a grasper, the vessel sealer apparatus was then used to come across the mesosalpingx from the fimbriated end to the insertion site at the uterus, the tube was then amputated and removed in its entirety. This was done on the contralateral side. The tubes were the removed from the patients abdomen. 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 specimen removed using the endocatch Excellent hemostasis was noted. The lateral ports were then moved under direct visualization with excellent hemostasis. All instruments were removed from the patient's abdomen. The fascia was closed using the #0 Vicryl on GI needle. The skin was closed using 4-0 Vicryl subcuticularly. All instruments were removed from the patient's vagina as well. The patient was taken out of the dorsal lithotomy position and placed in the supine position and taken to recovery in stable condition. Sponge, lap and needle counts were correct x2. Anesthesia: TIFFANIEA Surgeon: Emeterio Horner Assembly Line Worker: Charleen Munoz Estimated blood loss (mL): 5 Pathology: other (tubes and lt ovary) Condition: stable Disposition: PACU
--- NOTE | 2023-01-29 12:35 | PM.ONB ---
Brief Operative Note Date of procedure: 01/29/23 Pre-op diagnosis: pmb Post-op diagnosis: same as pre-op Procedure: NAME OF PROCEDURE: [ D&c hysteroscopy] PROCEDURE: The patient was taken back to the Operating Room where she was prepped and draped in normal sterile fashion after being placed under general anesthesia without difficulty. She was also placed in the dorsal lithotomy position. A weighted speculum was placed in the patient?s vagina. The anterior lip of the cervix was identified and grasped with a single tooth tenaculum. The patient?s uterus was unable to be sounded, attempted dilation with hegars, was uncertain of location dt severe cervical stenosis, decided to abort procedure in order to prevent uterine perforation. pt taken out of lithotomy and taken to recovery in stable condition Anesthesia: SYED Surgeon: Emeterio Horner Estimated blood loss (mL): 5 Pathology: none sent Condition: stable Disposition: PACU
--- NOTE | 2023-01-29 13:52 | PC.NURSE ---
PATIENT IS AWAKE AND DRINING WATER AND EATING CRACKERS
[2023-01-29] MEDS: PROMETHAZINE HCL 25 MG TABLET PO (14:30)
--- NOTE | 2023-01-29 14:40 | PC.NURSE ---
Medicated with Phenergan by mouth as ordered; no further emesis; states she feels better; peripad dry
--- NOTE | 2023-01-29 15:06 | PC.NURSE ---
Up to bathroom and voids clear yellow without difficulty; states she's still nauseated, no emesis; dressings x3 intact to abdomen with shadowing on right dressing
--- NOTE | 2023-01-29 15:30 | PC.NURSE ---
no further c/o nausea; peripad dry
== END 2023-01-29 15:32 | disposition home or self-care (01) ==
PROVIDERS: PCP Family Medicine; Visit Provider Obstetrics & Gynecology
PROC: (CPT 58661; principal; 2023-01-29 09:40)
DX: Z30.2 Encounter for sterilization (principal); N83.8 Other noninflammatory disorders of ovary, fallopian tube and broad ligament; E66.01 Morbid (severe) obesity due to excess calories; Z68.41 Body mass index [BMI] 40.0-44.9, adult; D27.1 Benign neoplasm of left ovary
CPT/HCPCS: 58661; 36415; 84702; 85025; 88112; 88305; 99999; J1170; J2704

== ENCOUNTER 2023-03-15 15:00 | Outpatient (OUT) | payer OTHER, SELFPAY ==
[2023-03-15 16:27] LABS: Estimated Average Glucose 105 mg/dL; Glycohemoglobin A1C 5.3 % (4.5-6.2)
[2023-03-15 16:57] LABS: Glucose 80 mg/dL (74-106)
[2023-03-15 17:04] LABS: Free T4 1.03 ng/dL (0.76-1.46)
[2023-03-17 04:07] LABS: Progesterone 0.3 ng/mL (.); Sex Horm Binding Glob, Serum 32.1 nmol/L (24.6-122.0)
[2023-03-17 11:09] LABS: C-Peptide, Serum 3.3 ng/mL (1.1-4.4); Insulin 12.2 uIU/mL (2.6-24.9)
[2023-03-17 16:11] LABS: Thyroglobulin Antibody 1.3 IU/mL (0.0-0.9); Thyroid Peroxidase (TPO) Ab 17 IU/mL (0-34)
[2023-03-18 12:09] LABS: Calcitriol(1,25 di-OH Vit D) 39.2 pg/mL (24.8-81.5)
[2023-03-18 16:09] LABS: Estrone, Serum 121 pg/mL (27-231)
[2023-03-21 13:07] LABS: Free Testosterone(Direct) 1.6 pg/mL (0.0-4.2); Testosterone 35 ng/dL (8-60)
[2023-03-22 00:06] LABS: Serotonin, Serum 183 ng/mL (31-207)
[2023-03-23 18:08] LABS: Cortisol, Free Dialysis, LCMS 0.347 ug/dL (.)
[2023-03-24 20:09] LABS: Reverse T3, Serum 24.8 ng/dL (9.2-24.1)
== END 2023-03-15 15:01 | disposition home or self-care (01) ==
LOC: LAB 15:05
PROVIDERS: PCP Family Medicine; Visit Provider Obstetrics & Gynecology
DX: E34.9 Endocrine disorder, unspecified (principal)
CPT/HCPCS: 36415; 82530; 82627; 82652; 82670; 82679; 82728; 82947; 83036; 83525; 84144; 84260; 84270; 84402; 84403; 84436; 84439; 84443; 84481; 84482; 84681; 86376; 86800

== ENCOUNTER 2023-03-22 20:16 | Outpatient (REF) | payer OTHER, SELFPAY ==
[2023-03-26 12:14] LABS: Age Gdln ACOG Testing Note (.); HPV Aptima Negative (Negative); IGP, Aptima HPV, rfx 16/18,45 Note (.)
== END 2023-03-22 20:17 | disposition home or self-care (01) ==
LOC: LAB 20:16
PROVIDERS: PCP Family Medicine; Visit Provider Obstetrics & Gynecology
DX: Z01.419 Encounter for gynecological examination (general) (routine) without abnormal findings (principal)
CPT/HCPCS: 87624; G0145